=== PATIENT | male | born 1955 | race Caucasian/White ===

== ENCOUNTER 2019-09-15 19:15 | Outpatient (CLI) | payer BC | END 2019-09-15 19:16 | disposition critical access hospital (66) | LOC: EMS 19:15 | PROVIDERS: ATTEND Surgery | DX: R07.81 Pleurodynia (principal); W18.30XA Fall on same level, unspecified, initial encounter; Y92.89 Other specified places as the place of occurrence of the external cause | CPT/HCPCS: A0425; A0429 ==

== ENCOUNTER 2019-09-15 19:35 | Emergency (ER) | payer BC ==
--- NOTE | 2019-09-15 22:09 | ED Physician Documentation ---
PD HPI Fall - Stated complaint Stated Complaint: GLF, LEFT RIB PAIN, SOA - Chief complaint Chief Complaint: Trauma Hd/Nk - History obtained from History obtained from: Patient - History of Present Illness Mechanism of injury: Slipped Fall distance: Standing position Where injury occurred: Other (dock) Timing - onset: Enter time (14:00), Today Injury(ies) location: Chest Pain level now: 8 Quality of pain: Pain Associated symptoms: No: LOC, AMS, Neck pain, Weakness, Paresthesias, Dyspnea, Nausea / vomiting Symptoms improve with: Rest, Position (standing) Worsens with: Movement, Palpation Contributing factors: No: Anticoagulated Similar symptoms before: Has not had sx before Recently seen: Not recently seen - Additional information Additional information: slipped and fell on dock today 2 PM, landed on left side, c/o sudden onset left chest wall pain that is worse with movement, palpation, deep inspiration Review of Systems Cardiac: reports: Chest pain / pressure (chest wall pain, left lateral). denies : Palpitations Respiratory: denies: Dyspnea, Cough, Hemoptysis, Wheezing GI: denies: Abdominal Pain, Abdominal Swelling, Nausea, Vomiting Skin: denies: Rash, Lesions, Abrasion (s), Laceration (s) Musculoskeletal: reports: Reviewed and negative. denies: Neck pain, Back pain PD PAST MEDICAL HISTORY - Past Medical History Past Medical History: No Cardiovascular: None Respiratory: None Neuro: None Endocrine/Autoimmune: None GI: None : None HEENT: None Psych: None Musculoskeletal: None Derm: None - Past Surgical History Past Surgical History: No - Present Medications Home Medications: Ambulatory Orders Medication Instructions Recorded Confirmed Oxycodone HCl/Acetaminophen 1 - 2 each PO Q6H PRN #20 tablet 09/16/19 [Percocet 5-325 mg Tablet] - Allergies Allergies/Adverse Reactions: Allergies Allergy/AdvReac Type Severity Reaction Status Date / Time No Known Drug Allergies Allergy Verified 09/15/19 19:45 - Social History Does the pt smoke?: No Smoking Status: Never smoker Does the pt drink ETOH?: Yes Does the pt have substance abuse?: No - Immunizations Immunizations are current?: Yes - POLST Patient has POLST: No PD ED PE NORMAL - Vitals Vital signs reviewed: Yes - General General: Alert and oriented X 3, Well developed/nourished, Other (standing, back against wall, appears uncomfortable at times) - Neck Neck: No bony TTP - Respiratory Respiratory: No respiratory distress, Clear bilaterally - Abdomen Abdomen: Soft, Non tender - Derm Derm: Normal color, Warm and dry - Neuro Neuro: Alert and oriented X 3 - Free text exam Free text exam: left lateral chest wall bony tenderness without crepitus Results - Vitals Vitals: Vital Signs - 24 hr 09/15/19 09/15/19 09/15/19 19:43 20:40 21:29 Temperature 36.4 C L Heart Rate 79 81 Respiratory 18 17 17 Rate Blood Pressure 132/79 H 118/77 O2 Saturation 97 09/15/19 09/15/19 09/15/19 22:10 22:32 23:30 Temperature Heart Rate Respiratory 17 17 17 Rate Blood Pressure O2 Saturation 09/16/19 09/16/19 00:24 00:34 Temperature Heart Rate 89 Respiratory 18 17 Rate Blood Pressure 127/66 O2 Saturation 99 Oxygen O2 Source Room air - Rads (name of study) chest w/ ribs xrays Radiology: Prelim report reviewed, See rad report PD MEDICAL DECISION MAKING - ED course Complexity details: reviewed results, re-evaluated patient, considered differential, d/w patient Departure - Departure Disposition: 01 Home, Self Care Clinical Impression: Rib fractures Condition: Good Instructions: ED Fx Rib Prescriptions: Oxycodone HCl/Acetaminophen [Percocet 5-325 mg Tablet] 1 - 2 each PO Q6H PRN #20 tablet PRN Reason: pain Discharge Date/Time: 09/16/19 00:38
[2019-09-15] MEDS ORDERED: oxyCODONE 5 MG TABLET PO STA (22:18)
[2019-09-16 00:25] VITALS: BP 127/66
[2019-09-16] MEDS ORDERED: oxyCODONE/ACET 5/325 Prepack 4 PO STA (00:30)
--- NOTE | 2019-09-16 08:15 | XRAY Report ---
PROCEDURE: Ribs w/PA Chest LT INDICATIONS: fall, left chest wall pain TECHNIQUE: 2 views of the left ribs were acquired, along with a single view chest. COMPARISON: None FINDINGS: Surgical changes and devices: None. Bones and chest wall: There are acute minimally displaced fractures of the left posterior lateral six th and seventh and eighth ribs. There is a more lateral mildly angulated 10th rib fracture. No suspic ious bony lesions. Overlying soft tissues appear unremarkable. Lungs and pleura: No pleural effusions or pneumothorax. Minimal left basilar atelectasis. Mediastinum: Mediastinal contours appear normal. Heart size is normal. IMPRESSION: Left sixth, seventh, eighth, and 10th rib fractures. Minimal left basilar atelectasis. No pneumothora x. A preliminary report with the above findings was provided at the time of the study by [facility]. Reviewed by: Lyle Singer MD on 09/16/2019 7:14 AM HOME Approved by: Lyle Singer MD on 09/16/2019 7:14 AM HOME Station ID: [id number]
== END 2019-09-16 00:38 | disposition home or self-care (01) ==
LOC: ED 19:35
DX: S22.42XA Multiple fractures of ribs, left side, initial encounter for closed fracture (principal); W01.0XXA Fall on same level from slipping, tripping and stumbling without subsequent striking against object, initial encounter; Y93.01 Activity, walking, marching and hiking; Y92.89 Other specified places as the place of occurrence of the external cause
CPT/HCPCS: 71101; 99283; 99284; A9270